=== PATIENT | female | born 1975 | race Caucasian/White ===

== ENCOUNTER 2022-03-04 04:32 | Emergency (ER) | payer BC, SELFPAY ==
[2022-03-04 04:37] VITALS: BP 168/96; PULSE 91; RESP 18; TEMP 36.7; O2SAT 100
--- NOTE | 2022-03-04 04:48 | ED.GENADULT ---
HPI - General Adult General Chief complaint: Vaginal Bleeding Stated complaint: Vaginal bleeding Time Seen by Provider: 03/04/22 04:47 History of Present Illness HPI narrative: 26-year-old female who presents to the emergency department with vaginal bleeding. Patient reports the last 2 weeks has been having fairly heavy vaginal bleeding reports that she is going through a pad about every hour. Patient states that she was seen in [place] emergency department earlier today and had a believe. Patient states that she continues to have cramping and had bleeding. She had a tubal ligation at age 21. Related Data Allergies Allergy/AdvReac Type Severity Reaction Status Date / Time codeine AdvReac Nausea and Verified 03/04/22 04:41 Vomiting Review of Systems Review of Systems: A 10 system review of systems was completed on the patient and is negative except for what is stated in the HPI. Nursing and ancillary documentation was reviewed. Exam Narrative: GENERAL: Well-appearing, well-nourished, and in no acute distress. HEAD: Normocephalic, atraumatic. EYES: PERRLA and EOMI. ENT: Nares clear, no rhinorrhea or epistaxis. Mucous membranes moist. NECK: Supple. CHEST: Clear to auscultation. No respiratory distress. HEART: Regular rate and rhythm. No murmur heard. Normal peripheral pulses. ABDOMEN: Soft, nontender, nondistended, normal active bowel sounds. EXTREMITIES: Normal range of motion. No edema. SKIN: Warm, dry, no rash. NEURO: No focal deficits. Alert and oriented x3. PSYCH: Normal mood and affect. Course Vital Signs Vital signs: Vital Signs Temperature 36.7 C 03/04/22 04:37 Pulse Rate 91 03/04/22 04:37 Respiratory Rate 18 03/04/22 04:37 Blood Pressure 168/96 H 03/04/22 04:37 Pulse Oximetry 100 03/04/22 04:37 Oxygen Delivery Room Air 03/04/22 04:37 Temperature 36.7 C 03/04/22 04:37 Pulse Rate 75 03/04/22 05:02 Respiratory Rate 18 03/04/22 04:37 Blood Pressure 144/88 H 03/04/22 05:02 Pulse Oximetry 100 03/04/22 04:37 Oxygen Delivery Room Air 03/04/22 04:37 Medical Decision Making Vital Signs Vital Signs: Vital Signs Temperature 36.7 C 03/04/22 04:37 Pulse Rate 91 03/04/22 04:37 Respiratory Rate 18 03/04/22 04:37 Blood Pressure 168/96 H 03/04/22 04:37 Pulse Oximetry 100 03/04/22 04:37 Oxygen Delivery Room Air 03/04/22 04:37 Temperature 36.7 C 03/04/22 04:37 Pulse Rate 75 03/04/22 05:02 Respiratory Rate 18 03/04/22 04:37 Blood Pressure 144/88 H 03/04/22 05:02 Pulse Oximetry 100 03/04/22 04:37 Oxygen Delivery Room Air 03/04/22 04:37 Lab Data Result diagrams: 03/04/22 05:01 03/04/22 05:01 Labs: Lab Results 03/04/22 03/04/22 03/04/22 Range/Units 05:01 05:01 05:01 WBC 6.9 (4.5-10.0) K/mm3 RBC 3.96 L (4.2-5.4) M/mm3 Hgb 12.2 (12.0-15.0) g/dL Hct 37.8 (37.0-47.0) % MCV 95.5 (80-100) fl MCH 30.8 (26-34) pg MCHC 32.3 (32-36) g/dl RDW 13.2 (11.5-14.5) % Plt Count 311 (150-375) k/mm3 MPV 9.5 (7.4-10.4) fl Immature Gran % (Auto) 0.4 (0-0.5) % Neut % (Auto) 50.4 (45.5-73.1) % Lymph % (Auto) 37.5 (18.3-44.2) % Ritchie % (Auto) 7.9 (2.6-8.5) % Eos % (Auto) 3.2 (0-4.4) % Baso % (Auto) 0.6 (0.2-1.2) % Lymph # (Auto) 2.57 (0.9-3.2) K/mm3 Ritchie # (Auto) 0.5 (0.1-0.6) K/mm3 Eos # (Auto) 0.2 (0-0.3) K/mm3 Baso # (Auto) 0.0 (0.0-0.1) K/mm3 Abs Immat Gran (auto) 0.03 (0.00-0.031) K/mm3 Absolute Neuts (auto) 3.5 (1.3-6.7) K/mm3 Absolute Nucleated RBC 0.0 (0.0-0.012) K/mm3 Nucleated RBC % 0.0 (0.0-0.2) % Sodium 138 (137-145) mmol/L Potassium 4.1 (3.4-5.0) mmol/L Chloride 105 (98-107) mmol/L Carbon Dioxide 26 (22-30) mmol/L Anion Gap 7 L (8-16) mmol/L BUN 16 (7-17) mg/dL Creatinine 0.70 (0.7-1.0) mg/dL Estim Creat Clear Calc Not Report
[2022-03-04 05:00] VITALS: BP 149/87; PULSE 77
[2022-03-04 05:01] VITALS: BP 138/85; PULSE 78
[2022-03-04 05:02] VITALS: BP 144/88; PULSE 75
[2022-03-04 05:09] LABS: Basophils Percent Auto 0.6 % (0.2-1.2); Eosinophils Absolute Auto 0.2 K/mm3 (0-0.3); Eosinophils Percent Auto 3.2 % (0-4.4); Hematocrit 37.8 % (37.0-47.0); Hemoglobin 12.2 g/dL (12.0-15.0); Immature Granulocyte Absolute 0.03 K/mm3 (0.00-0.031); Immature Granulocyte Percent A 0.4 % (0-0.5); Lymphocytes Absolute Auto 2.57 K/mm3 (0.9-3.2); Lymphocytes Percent Auto 37.5 % (18.3-44.2); Mean Corpuscular HGB Conc 32.3 g/dl (32-36); Mean Corpuscular Hemoglobin 30.8 pg (26-34); Mean Corpuscular Volume 95.5 fl (80-100); Mean Platelet Volume 9.5 fl (7.4-10.4); Monocytes Absolute Auto 0.5 K/mm3 (0.1-0.6); Monocytes Percent Auto 7.9 % (2.6-8.5); Neutrophils Absolute Auto 3.5 K/mm3 (1.3-6.7); Neutrophils Percent Auto 50.4 % (45.5-73.1); Platelet Count Result 311 k/mm3 (150-375); Red Blood Count 3.96 M/mm3 (4.2-5.4); Red Cell Distribution Width 13.2 % (11.5-14.5); White Blood Count 6.9 K/mm3 (4.5-10.0)
[2022-03-04 05:18] LABS: Appearance Urine Clear (Clear); Bilirubin Urine Negative (Negative); Blood Urine 3+ (Negative); Color Urine Yellow (Yellow); Glucose Urine UA Negative (Negative); Ketones Urine Trace mg/dL (Negative); Leukocyte Esterase Ur Negative LEU/UL (Negative); Nitrate Urine Positive (Negative); Protein Urine Trace mg/dL (Negative); Specific Grav Ur >= 1.030 (1.001-1.035); Urobilinogen Urine 0.2 mg/dL (<2.0); pH Urine 5.5 (5.0-9.0)
[2022-03-04 05:19] LABS: Anion Gap 7 mmol/L (8-16); Blood Urea Nitrogen 16 mg/dL (7-17); Calcium 8.7 mg/dL (8.4-10.2); Carbon Dioxide 26 mmol/L (22-30); Chloride 105 mmol/L (98-107); Estimated Glomerular Filt Rate > 60; Glucose 95 mg/dL (65-110); Potassium 4.1 mmol/L (3.4-5.0); Sodium 138 mmol/L (137-145)
[2022-03-04 05:27] LABS: Bacteria Urine Trace /hpf; Mucus Urine Rare /lpf; RBC Urine >75 /hpf (0-2); Squamous Epithelial Cell Urine Few /hpf (Few)
[2022-03-04 05:38] LABS: Add Urine Microscopic? YES
[2022-03-04] MEDS: CEPHALEXIN 500 MG CAPSULE PO (05:44)
== END 2022-03-04 05:48 | disposition home or self-care (01) ==
PROVIDERS: Emergency Provider Emergency Medicine; PCP Family Medicine
DX: N93.8 Other specified abnormal uterine and vaginal bleeding (principal); N39.0 Urinary tract infection, site not specified
CPT/HCPCS: 36415; 80048; 81001; 81025; 85025; 87077; 87086; 87186; 99283; A9270

== ENCOUNTER 2022-03-30 00:05 | Day surgery (SDC) | payer BC, SELFPAY ==
[2022-03-21 13:06] VITALS: BMI 29.2
--- NOTE | 2022-03-21 13:11 | PC.NURSE ---
Report to the Outpatient Waiting Room, entrance under the green pavilion located off [facility], at time 1015 on date 03/30/22. Planned Procedure Time: 1215. Time changes happen often and if your time is changed the preop area will call you the afternoon before. - You and your visitor will be asked to self-screen and do not enter if you have any COVID symptoms. - Only one visitor is requested with a max of two and NO children visitors are allowed at this time. - The patient visitor may be requested to leave or wait in car when not with patient due to distancing restrictions. - A mask is optional within the hospital. Patients may have clear liquids (water, carbonated beverages, clear teas, apple juice) until 3 hours prior to surgery with a maximum of 20 ounces. - No food from midnight until time of surgery Take the following medications with a SIP of water the morning of surgery: N/A Medications to discontinue per physician: N/A Date to take last dose: N/A Please no make-up, nail faroese, hairspray, perfume, deodorant, or body powder the day of surgery. No jewelry (including any body piercings) or valuables the day of surgery, leave them at home. Please take a shower or bath the night before, or the morning of, surgery with an antibacterial soap. Wear comfortable, loose fitting clothing. - Jewelry must be removed prior to entering the operating room. Rings and piercings that are not removed may be cut off. - The hospital will not accept responsibility for valuables. - Please leave all valuables, including medications, at home the day of surgery. If you are going home after surgery, a licensed local truck driver must drive you home. - NO public transportation without another adult if you receive anesthesia. - We recommend that an adult stay with you for 24 hours following discharge. - We also recommend that you do not drive, make important decision, drink alcoholic beverages, or take any drugs that were not prescribed by your health care provider for at least 24 hours after your discharge time. Follow any additional instructions given to you from your surgeon. If you or anyone in your household have experienced Covid symptoms in the past week, please notify your surgeon or the nurse liaison at the phone number below for possible testing. Telephone instructions given to PT - AARON SHAH and asked if any additional questions and then verbalized understanding. Patient advised to call surgeon office or pre surgery nurse liaison [phone] if any additional questions.
--- NOTE | 2022-03-27 07:59 | PM.IMHP ---
H&P: HPI History of Present Illness Date/Time: 03/27/22 07:59 Chief Complaint: Heavy and irregular bleeding Narrative: This is 46-year-old female with heavy bleeding refractory to medical therapy. She is admitted for hysteroscopy dilatation curettage Selena. Risks and benefits reviewed in great detail. She received the [facility] handout entitled hysteroscopy as well as dilatation curettage. She also received the Selena handout. She refused medical therapy otherwise had all questions answered and asked to proceed. REPLACED BY [facility] Family History Family History Grandparent Diabetes mellitus Heart disease Sibling Diabetes mellitus Social History Social History Smoking packs per day: 0.75 Smoking cigarettes per day: 15.0 Years smoked: 30 Smoking pack-years: 22.50 Smoking status: Current every day smoker Tobacco type: cigarettes Alcohol intake: never Substance use: never Substance use type: does not use Living arrangements: with family Spiritual care concerns: No Meds Home Medications and Allergies Home Medications Medication Instructions Recorded Confirmed Type No Home Medications 03/21/22 03/21/22 History Allergies Allergy/AdvReac Type Severity Reaction Status Date / Time codeine AdvReac Nausea and Verified 03/21/22 13:05 Vomiting Exam Const: General: cooperative, healthy appearing and comfortable Orientation/consciousness: oriented to person, oriented to place and oriented to time HENMT: Head: normal to inspection Resp: Effort & Inspection: normal respiratory effort Cardio: Rate: regular rate Rhythm: regular rhythm Heart sounds: S1 normal heart sound present and S2 normal heart sound present GI: Inspection: normal to inspection : External Female Exam: normal external appearance Speculum Exam - Vagina: normal appearance of the vagina Speculum Exam - Cervix: normal appearance of the cervix Bimanual exam- vagina & uterus: enlarged Bimanual Exam- Adnexa, other: normal adnexae Assessment and Plan Assessment and plan (1) Vaginal bleeding: Code(s): N93.9 - Abnormal uterine and vaginal bleeding, unspecified Status: Acute Plan Hysteroscopy/dilatation curettage/Selena ablation
--- NOTE | 2022-03-30 06:14 | WPDHPUPDATE1 ---
History and Physical Update Update Date/Time: 03/30/22 06:14 History and Physical has been reviewed, including an updated exam of the patient. There are NO changes in the patient's condition. Risks, benefits, and alternatives have been discussed and questions answered. Patient agrees to proceed with procedure.
[2022-03-30 10:05] VITALS: BP 129/75; PULSE 76; RESP 16; TEMP 36.7; O2SAT 100
[2022-03-30 10:09] VITALS: BMI 29.9
--- NOTE | 2022-03-30 10:12 | P.PNAN_ITS ---
Anes - Initial Pre Proc Eval Procedure: Operation Date: 03/30/22 12:15 Proposed Procedures p Hysteroscopy Dilation and Curettage Selena Endometrial Ablation - Jose Echevarria MD Date/Time: 03/30/22 10:12 Surgeon: Jose Echevarria MD Pre Op Diagnosis: irregular bleeding Patient Data Age: 46 Gender: F Height: 1.75 m Weight: 92 kg Allergies Allergy/AdvReac Type Severity Reaction Status Date / Time codeine AdvReac Nausea and Verified 03/30/22 10:11 Vomiting Home Medications Medication Instructions Recorded Confirmed Type hydrocodone 5 mg-acetaminophen 325 1 tablet PO Q4H PRN pain #20 tabs 03/30/22 Rx mg tablet Patient hx anesthesia problems: none Family hx anesthesia problems: none Results Review: All pre-operative results and documents have been reviewed as part of the pre- operative evaluation. [facility] Family History Family History Grandparent Diabetes mellitus Heart disease Sibling Diabetes mellitus Social History Social History Smoking packs per day: 0.75 Smoking cigarettes per day: 15.0 Years smoked: 30 Smoking pack-years: 22.50 Smoking status: Current every day smoker Tobacco type: cigarettes Alcohol intake: never Substance use: never Substance use type: does not use Living arrangements: with family Spiritual care concerns: No Anes - Eval Final PreProcedure Day of Procedure 03/30/22 10:12 Patient weight: overweight Heart: regular rate and rhythm Lungs: decreased breath sounds Airway: Mallampati scale class II Neurological: alert and oriented Last oral intake: >/= 8 hours ASA classification: III Emergent: no Anesthetic plan: proceed Anesthesia type and monitoring: general GIVS and standard monitoring Results Review: All pre-operative results and documents have been reviewed as part of the pre- operative evaluation. Informed Consent: The patient's anesthetic plan and its attendant risks and benefits were discussed with the patient/family/POA. Questions were solicited and answers provided to the satisfaction of the patient/family/POA.
[2022-03-30] MEDS: ACETAMINOPHEN 500 MG TABLET 1000 MG PO (10:29)
[2022-03-30] MEDS: LACTATED RINGERS 1,000 ML 30 ML IV CONT (10:30)
[2022-03-30] MEDS: LIDOCAINE HCL 1% PF 30 ML VIAL 10 ML INFILTRATE (11:57)
[2022-03-30 12:10] VITALS: BP 121/80; PULSE 67; RESP 12; O2SAT 97
--- NOTE | 2022-03-30 12:11 | P.OP_ITS ---
Procedure Note - Detailed Date of Procedure 03/30/22 Pre-op Diagnosis irregular bleeding Post-op Diagnosis Same Procedure Performed Hysteroscopy / polypectomy/dilatation curettage Surgeon Jose Echevarria MD Anesthesia MAC and Local Indications vaginal bleeding refractory to medical therapy Findings uterus sounded to the 8cm. Uterine polyps were seen. Description of Procedure Patient was prepped draped in normal sterile fashion placed in dorsal lithotomy position. Under excellent IV sedation weighted speculum placed in posterior fornix vagina. Anterior lip of cervix grasped with single-tooth tenaculum 2.5cc 1% xylocaine anesthesia placed at 2, 4, 8, 10:00 a.m. respectively the cervix. Uterus sounded 8cm. Serial dilatation fragmented os performed followed by passes 5mm visualizing hysteroscope using normal saline as visualizing medium. Some small polyps were seen these were blocked the polyp forceps the uterus was then scraped over the entire 360?. When this was finished the instruments removed the Selena instrument was placed in the uterus burned for 120seconds and the instruments removed the hysteroscope was reinserted a good burn was seen in photo documentation undertaken. The i nstruments were all returned the patient was awakened went to recovery in satisfactory condition. All sponge, needle, instrument counts were correct. There were no immediate complications Estimated Blood Loss 5 Drains No Packing No Pathology Yes Complications No immediate complications Condition Stable Disposition PACU
[2022-03-30 12:35] VITALS: BP 133/85; PULSE 57; RESP 12; O2SAT 100
[2022-03-30 13:05] VITALS: BP 151/105; PULSE 75; RESP 12
[2022-03-30] MEDS: oxyCODONE HCL (*CRX) 5 MG TAB IR PO (13:10)
== END 2022-03-30 13:54 | disposition home or self-care (01) ==
PROVIDERS: PCP Emergency Medicine; Visit Provider Obstetrics & Gynecology
PROC: 0U5B8ZZ Destruction of Endometrium, Via Natural or Artificial Opening Endoscopic (ICD-10-PCS; CPT 58563; principal; 2022-03-30 12:15)
DX: N93.9 Abnormal uterine and vaginal bleeding, unspecified (principal); F17.210 Nicotine dependence, cigarettes, uncomplicated
CPT/HCPCS: 58558; 88305; A9270; J2250; J2704; J3010; J7030; J7120

== ENCOUNTER 2022-09-11 13:42 | Outpatient (CLI) | payer BC, SELFPAY ==
--- NOTE | ~2022-09-11 | MMUS_ITS ---
EXAMINATION: MM diagnostic maritza BI w rajesh, US breast BI limited HISTORY: History of April 2021 [facility] right mammographic finding recommended for 6 month follow-up TECHNIQUE: Bilateral full field and spot ML, MLO and CC 3-D tomosynthesis images were performed and s ynthetic 2-D images were generated. CAD analysis was submitted and interpreted. High resolution bilat eral subareolar breast ultrasound was performed. COMPARISON: None BREAST PARENCHYMAL COMPOSITION: There are scattered areas of fibroglandular density. FINDINGS: MAMMOGRAPHIC FINDINGS: Probable fibroid of the stroma in the subareolar areas primarily. No suspicious mass or shadowing, ar chitectural distortion, malignant calcification, skin thickening or retraction is evident. ULTRASOUND: No suspicious mass or shadowing or other significant sonographic abnormality is noted in subareolar a reas of the breasts. IMPRESSION: 1. No mammographic evidence of malignancy 2. Routine mammographic screening is recommended BI-RADS Category 1: Negative Reviewed, dictated and finalized at location A. IMPRESSION: 1. No mammographic evidence of malignancy 2. Routine mammographic screening is recommended BI-RADS Category 1: Negative
== END 2022-09-11 13:43 | disposition home or self-care (01) ==
LOC: ANHIMG 13:43
PROVIDERS: PCP Emergency Medicine; Visit Provider Emergency Medicine
DX: R92.8 Other abnormal and inconclusive findings on diagnostic imaging of breast (principal)
CPT/HCPCS: 76642; 77062; 77066; G0279